=== PATIENT | male | born 1975 | race Caucasian/White ===

== ENCOUNTER → 2024-10-01 15:01 | Outpatient (CLI) | payer OTHER, SELFPAY ==
--- NOTE | 2024-10-01 15:06 | DI.RAD.S_ITS ---
PROCEDURE: XR LUMBAR SPINE MIN 4V INDICATIONS: BACK PAIN TECHNIQUE: 5 views of the lumbar spine acquired, including flexion and extension views. COMPARISON: None. FINDINGS: Bones: 5 nonrib-bearing vertebrae are present. There is normal bony alignment. No vertebral body compression fractures. No suspicious bony lesions. Mild disc height loss at L4-5 and L5-S1. Mild facet arthrosis of L4-5 and L5-S1. Soft tissues: Overlying bowel gas pattern is normal. No suspicious soft tissue calcifications. Flexion/extension: There is normal range of motion, with preserved normal alignment. IMPRESSION: No acute bony abnormality. Mild, lower lumbar degenerative disc disease and lower lumbar facet arthrosis. Dictated by: Rohit Zhu M.D. on 10/01/2024 at 15:47 Approved by: Rohit Zhu M.D. on 10/01/2024 at 15:47
== END ==
PROVIDERS: Referring Provider Physical Medicine & Rehabilitation; Visit Provider Physical Medicine & Rehabilitation
DX: M51.369 Other intervertebral disc degeneration, lumbar region without mention of lumbar back pain or lower extremity pain (principal); M51.379 Other intervertebral disc degeneration, lumbosacral region without mention of lumbar back pain or lower extremity pain; M47.816 Spondylosis without myelopathy or radiculopathy, lumbar region; M47.817 Spondylosis without myelopathy or radiculopathy, lumbosacral region; M54.9 Dorsalgia, unspecified
CPT/HCPCS: 72110

== ENCOUNTER 2024-11-01 07:30 | Outpatient (RCR) | payer OTHER, SELFPAY ==
--- NOTE | 2024-10-11 07:13 | PT.OIE ---
Current Diagnoses Carpal tunnel syndrome, right upper limb (10/10/24) Spondylosis without myelopathy or radiculopathy, lumbar region (10/10/24) Cervicalgia (10/10/24) Low back pain, unspecified (10/10/24) Past Medical History (Last Updated 10/02/24 @ 15:20 by Jered Barksdale DO) Carpal tunnel syndrome of right wrist Cervicalgia Low back pain Lumbar spondylosis Visit Care Team Role Provider Type JERILYN Crum Family Provider Non-Staff Primary Care Provider Specialty: Family Practice Address: [address] [place] [address], [address], [place], [address] Email: Jered Barksdale DO Attending Provider Physician Referring Provider Specialty: Interventional Radiology Physiatry Pain Management Address: [address] [place] [address], [address] Phone: Fax: Email: [email or web address] Physical Therapy Initial Evaluation PT-OP-A Visit Information Start: 10/11/24 06:57 Freq: Status: Active Protocol: Document 10/10/24 09:00 KW (Rec: 10/11/24 07:13 KW Laptop) Out-Patient Physical Therapy Visit Information Visit Information Visit Type Initial Evaluation Visit Note patient 30 min late EVAL ONLY Visit Start Time 08:30 Visit Stop Time 09:00 Visit Number 1 Evaluation Information Evaluation Date 10/10/24 PT-OP-B Current Condition Start: 10/11/24 06:57 Freq: Status: Active Protocol: Document 10/10/24 09:00 KW (Rec: 10/11/24 07:13 KW Laptop) Current Condition History of Current Condition Onset Date chronic Current Complaints Low back pain, C-spine pain, Tingling in feet and R hand 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 Uses a C-pap, full face mask. He goes to the gym and walks 60 min on the treadmill daily. PMHX: metabolic syndrome, Obesity, HTN, sleep apnea, L elbow tendon surgery. He describes a less than [place] ergonomic work station, avoids sit-stand option, needs a new chair, R mouse hand overs above desk, feet are tucked underneath his chair Treatment Goals Patient/Caregiver reduce tingling and pain Goals PT-OP-C Subjective Start: 10/11/24 06:57 Freq: Status: Active Protocol: Document 10/10/24 09:00 KW (Rec: 10/11/24 07:13 KW Laptop) Patient Questionnaires Oswestry Low Back Index Oswestry Score 22 Oswestry Impairment 20 to 39% Impaired (Score 20-39) OP-PT Pain Assessment Location left upper trap Pain Intensity 5 Scale Used Numeric (0 - 10) Description Aching,Burning,Cramping,Dull,Pinching,Pulling Frequency Frequent Pain Alleviating Cold,Heat,Medication,Inactivity Factors Pain Aggravating Position,Changing Position,ADL's,Activity,Exercise Factors low back Pain Location lumbar spine Details Pain Intensity 7 Scale Used Numeric (0 - 10) Description Aching,Burning,Cramping,Pinching,Pulling,Sharp,Spasm Frequency Frequent Pain Alleviating Cold,Heat,Medication,Inactivity,Lying Supine,Position Factors PT-OP-E Functional Tests Start: 10/11/24 06:57 Freq: Status: Active Protocol: Document 10/10/24 09:00 KW (Rec: 10/11/24 07:13 KW Laptop) Functional Tests Single Leg Squat Test Score 0 PT-OP-F Manual Assessment Start: 10/11/24 06:57 Freq: Status: Active Protocol: Document 10/10/24 09:00 KW (Rec: 10/11/24 07:13 KW Laptop) Manual Assessments Soft Tissue Assessment Soft Tissue Mobility stiffness of tissues throughout, lumbar para spinals, Assessment upper traps, suboccipitals Joint Mobility Assessment Joint Mobility B hips WNL ROM, hamstring length WNL Assessment PT-OP-J Posture/Palpation/Skin Start: 10/11/24 06:57 Freq: Status: Active Protocol: Document 10/10/24 09:00 KW (Rec: 10/11/24 07:13 KW Laptop) Posture Evaluation Position Standing Evaluation View Lateral Head/C-Spine Posture C-Spine Flattened,Forward Head T-Spine Posture Increased Kyphosis L-Spine Posture Rotation Left Shoulder Posture (L) Rounded,(R) Rounded Scapula Posture (L) Protracted,(R) Protracted Arm Posture (L) Internally Rotated,(R) Internally Rotated Weight Distribution Weight Shifted Right Hip Posture (L) Internally Rotated,(R) Externally Rotated Comments Posture Comments wide GUILHERME, toe out posture Palpation Assessment Location upper traps Palpation Location B upper traps Palpation Findings Soft Tissue Tightness,Muscle Guarding PT-OP-K Range of Motion Start: 10/11/24 06:57 Freq: Status: Active Protocol: Document 10/10/24 09:00 KW (Rec: 10/11/24 07:13 KW Laptop) Cervical Spine Range of Motion Cervical Spine Active Testing Position Sitting Flexion 25 Extension 10 Rotation Left 20 Rotation Right 22 Lateral Flexion Left 15 Lateral Flexion 14 Right ROM Limitations Soft Tissue Tightness Lumbar Spine Range of Motion Lumbar Spine Active Testing Position Standing Flexion 70 Extension 20 Rotation Left 15 Rotation Right 20 Lateral Flexion Left 15 Lateral Flexion 14 Right ROM Limitations Soft Tissue Tightness PT-OP-L Special Tests Start: 10/11/24 06:57 Freq: Status: Active Protocol: Document 10/10/24 09:00 KW (Rec: 10/11/24 07:13 KW Laptop) Special Tests Cervical Spine Special Tests Slump Test Results neg Lumbar Spine Special Tests Compression Test Results neg PT-OP-M Strength Start: 10/11/24 06:57 Freq: Status: Active Protocol: Document 10/10/24 09:00 KW (Rec: 10/11/24 07:13 KW Laptop) Trunk Strength Trunk Manual Muscle Testing Flexion 4- Good- Core Stabilization poor 3/5 Comments poor IO/TA activation, abdomen full of air, distended, poor full expiratory capacity Scapula Strength Scapula Manual Muscle Testing Right Elevation (C4) 4- Good- Adduction 4- Good- Abduction 4- Good- Depression 4- Good- Comments Bilateral Hip Strength Hip Manual Muscle Testing Right Flexion (L2) 4- Good- Abduction 4- Good- Comments bilateral PT-OP-T Assessment and Plan Start: 10/11/24 06:57 Freq: Status: Active Protocol: Document 10/10/24 09:00 KW (Rec: 10/11/24 07:13 KW Laptop) Physical Therapy Assessment Rehab Potential Rehabilitation Fair Potential Evaluation Complexity Number of Personal 3 or More Factors/ Comorbidities Number of Body 4 or More Systems Impaired Clinical Evolving Presentation at Evaluation Impairments Impairments Activity Tolerance,Balance,Functional Activities, Functional Mobility,Gait,Pain,Posture,ROM,Sensation, Strength Goals Three Impairment patient has pain Short Term Goal (STG pain improves 50% C spine L spine with HEP and ergo ) changes STG Duration 6 weeks Two Impairment poor ergonomics at work Short Term Goal (STG patient improves work station: sit-stand option, chair ) with lumbar support, UE supported on desk or chair rest takes breaks every 30 min STG Duration 6 weeks One Impairment lack of HEP Short Term Goal (STG patient demonstrates independence and compliance with ) basic HEP of hip strengthening exercises STG Duration 6 weeks Assessment Summary Assessment patient presents with LBP C spine pain. He presents with a sedentary life (outside of treadmill walking) and poor work ergonomics. Patient will benefit from skilled PT to address deficits and progress to meet goals. Barriers to Rx: co-morbidities. patient would benefit from a CGM to better manage blood sugars which may be affecting his tingling R hand B feet. Physical Therapy Plan Frequency and Duration Frequency of 2x/Week Treatment Duration of 6 treatment (weeks) Plan of Care Start 10/10/24 Date Plan of Care End 01/10/25 Date Therapeutic Interventions Therapeutic Balance Training,Gait Training,Home Exercise Program, Interventions Joint Mobilizations,Manual Therapy,Neuromuscular Re- education,Orthotic/Prosthetic Management,Patient/ Caregiver Education,Self-Care/Home Management,Soft Tissue Mobilization,Taping,Therapeutic Activities, Therapeutic Exercises Modalities Cold Pack/Ice Massage,Electric Stimulation,Hot Packs, Ultrasound Next Visit Focus/Plan Next Note Type Treatment Note Next Visit Plan warm up shuttle HEP: needs handouts for hip abd, CORE stabilization breath work training
--- NOTE | 2024-10-11 07:13 | PT.OPPOC ---
Physical, Occupational & Speech Therapy At Current Diagnoses Carpal tunnel syndrome, right upper limb (10/10/24) Spondylosis without myelopathy or radiculopathy, lumbar region (10/10/24) Cervicalgia (10/10/24) Low back pain, unspecified (10/10/24) Visit Care Team Role Provider Type JERILYN Crum Family Provider Non-Staff Primary Care Provider Specialty: Family Practice Address: [address] [place] [address], [address], [place], [address] Email: Jered Barksdale DO Attending Provider Physician Referring Provider Specialty: Interventional Radiology Physiatry Pain Management Address: [address] [place] [address], [address] Phone: Fax: Email: [email or web address] Plan Of Care PT-OP-B Current Condition Start: 10/11/24 06:57 Freq: Status: Active Protocol: Document 10/10/24 09:00 KW (Rec: 10/11/24 07:13 KW Laptop) Current Condition History of Current Condition Onset Date chronic Current Complaints Low back pain, C-spine pain, Tingling in feet and R hand 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 Uses a C-pap, full face mask. He goes to the gym and walks 60 min on the treadmill daily. PMHX: metabolic syndrome, Obesity, HTN, sleep apnea, L elbow tendon surgery. He describes a less than [place] ergonomic work station, avoids sit-stand option, needs a new chair, R mouse hand overs above desk, feet are tucked underneath his chair Treatment Goals Patient/Caregiver reduce tingling and pain Goals PT-OP-T Assessment and Plan Start: 10/11/24 06:57 Freq: Status: Active Protocol: Document 10/10/24 09:00 KW (Rec: 10/11/24 07:13 KW Laptop) Physical Therapy Assessment Rehab Potential Rehabilitation Fair Potential Evaluation Complexity Number of Personal 3 or More Factors/ Comorbidities Number of Body 4 or More Systems Impaired Clinical Evolving Presentation at Evaluation Impairments Impairments Activity Tolerance,Balance,Functional Activities, Functional Mobility,Gait,Pain,Posture,ROM,Sensation, Strength Goals Three Impairment patient has pain Short Term Goal (STG pain improves 50% C spine L spine with HEP and ergo ) changes STG Duration 6 weeks Two Impairment poor ergonomics at work Short Term Goal (STG patient improves work station: sit-stand option, chair ) with lumbar support, UE supported on desk or chair rest takes breaks every 30 min STG Duration 6 weeks One Impairment lack of HEP Short Term Goal (STG patient demonstrates independence and compliance with ) basic HEP of hip strengthening exercises STG Duration 6 weeks Assessment Summary Assessment patient presents with LBP C spine pain. He presents with a sedentary life (outside of treadmill walking) and poor work ergonomics. Patient will benefit from skilled PT to address deficits and progress to meet goals. Barriers to Rx: co-morbidities. patient would benefit from a CGM to better manage blood sugars which may be affecting his tingling R hand B feet. Physical Therapy Plan Frequency and Duration Frequency of 2x/Week Treatment Duration of 6 treatment (weeks) Plan of Care Start 10/10/24 Date Plan of Care End 01/10/25 Date Therapeutic Interventions Therapeutic Balance Training,Gait Training,Home Exercise Program, Interventions Joint Mobilizations,Manual Therapy,Neuromuscular Re- education,Orthotic/Prosthetic Management,Patient/ Caregiver Education,Self-Care/Home Management,Soft Tissue Mobilization,Taping,Therapeutic Activities, Therapeutic Exercises Modalities Cold Pack/Ice Massage,Electric Stimulation,Hot Packs, Ultrasound Next Visit Focus/Plan Next Note Type Treatment Note Next Visit Plan warm up shuttle HEP: needs handouts for hip abd, CORE stabilization breath work training Plan of Care Dates Plan of Care Start Date 10/10/24 Plan of Care End Date 01/10/25 Electronically Signed by: Octavia Mendez PT 10/11/24 0713 If you are in agreement with this Plan of Care, please return a signed and dated copy. I have reviewed this Plan of Care and certify that the skilled therapy services above are required to meet the patient?s needs. Physician Signature Date Printed Name and Credentials Clinical Instructor Signature Printed Name and Credentials
--- NOTE | 2024-10-17 07:56 | PT.OTN ---
Current Diagnoses Carpal tunnel syndrome, right upper limb (10/17/24) Spondylosis without myelopathy or radiculopathy, lumbar region (10/17/24) Cervicalgia (10/17/24) Low back pain, unspecified (10/17/24) Physical Therapy Treatment Note PT-OP-A Visit Information Start: 10/11/24 06:57 Freq: Status: Active Protocol: Document 10/17/24 07:40 KW (Rec: 10/17/24 07:56 KW Laptop) Out-Patient Physical Therapy Visit Information Visit Information Visit Type Treatment Note Visit Start Time 07:30 Visit Stop Time 08:10 Visit Number 2 Evaluation Information Evaluation Date 10/10/24 PT-OP-B Current Condition Start: 10/11/24 06:57 Freq: Status: Active Protocol: Document 10/10/24 09:00 KW (Rec: 10/11/24 07:13 KW Laptop) Current Condition History of Current Condition Onset Date chronic Current Complaints Low back pain, C-spine pain, Tingling in feet and R hand 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 Uses a C-pap, full face mask. He goes to the gym and walks 60 min on the treadmill daily. PMHX: metabolic syndrome, Obesity, HTN, sleep apnea, L elbow tendon surgery. He describes a less than [place] ergonomic work station, avoids sit-stand option, needs a new chair, R mouse hand overs above desk, feet are tucked underneath his chair Treatment Goals Patient/Caregiver reduce tingling and pain Goals PT-OP-C Subjective Start: 10/11/24 06:57 Freq: Status: Active Protocol: Document 10/17/24 07:40 KW (Rec: 10/17/24 07:56 KW Laptop) OP-PT Subjective Patient Comments Patient Comments golfed and strained R low back Patient Questionnaires Oswestry Low Back Index Oswestry Score 22 Oswestry Impairment 20 to 39% Impaired (Score 20-39) OP-PT Pain Assessment Location left upper trap Pain Intensity 7 Scale Used Numeric (0 - 10) Description Aching,Burning,Cramping,Dull,Pinching,Pulling Frequency Frequent Pain Alleviating Cold,Heat,Medication,Inactivity Factors Pain Aggravating Position,Changing Position,ADL's,Activity,Exercise Factors low back Pain Location lumbar spine Details Pain Intensity 7 Scale Used Numeric (0 - 10) Description Aching,Burning,Cramping,Pinching,Pulling,Sharp,Spasm Frequency Frequent Pain Alleviating Cold,Heat,Medication,Inactivity,Lying Supine,Position Factors PT-OP-E Functional Tests Start: 10/11/24 06:57 Freq: Status: Active Protocol: Document 10/10/24 09:00 KW (Rec: 10/11/24 07:13 KW Laptop) Functional Tests Single Leg Squat Test Score 0 PT-OP-F Manual Assessment Start: 10/11/24 06:57 Freq: Status: Active Protocol: Document 10/10/24 09:00 KW (Rec: 10/11/24 07:13 KW Laptop) Manual Assessments Soft Tissue Assessment Soft Tissue Mobility stiffness of tissues throughout, lumbar para spinals, Assessment upper traps, suboccipitals Joint Mobility Assessment Joint Mobility B hips WNL ROM, hamstring length WNL Assessment PT-OP-J Posture/Palpation/Skin Start: 10/11/24 06:57 Freq: Status: Active Protocol: Document 10/10/24 09:00 KW (Rec: 10/11/24 07:13 KW Laptop) Posture Evaluation Position Standing Evaluation View Lateral Head/C-Spine Posture C-Spine Flattened,Forward Head T-Spine Posture Increased Kyphosis L-Spine Posture Rotation Left Shoulder Posture (L) Rounded,(R) Rounded Scapula Posture (L) Protracted,(R) Protracted Arm Posture (L) Internally Rotated,(R) Internally Rotated Weight Distribution Weight Shifted Right Hip Posture (L) Internally Rotated,(R) Externally Rotated Comments Posture Comments wide GUILHERME, toe out posture Palpation Assessment Location upper traps Palpation Location B upper traps Palpation Findings Soft Tissue Tightness,Muscle Guarding PT-OP-K Range of Motion Start: 10/11/24 06:57 Freq: Status: Active Protocol: Document 10/10/24 09:00 KW (Rec: 10/11/24 07:13 KW Laptop) Cervical Spine Range of Motion Cervical Spine Active Testing Position Sitting Flexion 25 Extension 10 Rotation Left 20 Rotation Right 22 Lateral Flexion Left 15 Lateral Flexion 14 Right ROM Limitations Soft Tissue Tightness Lumbar Spine Range of Motion Lumbar Spine Active Testing Position Standing Flexion 70 Extension 20 Rotation Left 15 Rotation Right 20 Lateral Flexion Left 15 Lateral Flexion 14 Right ROM Limitations Soft Tissue Tightness PT-OP-L Special Tests Start: 10/11/24 06:57 Freq: Status: Active Protocol: Document 10/10/24 09:00 KW (Rec: 10/11/24 07:13 KW Laptop) Special Tests Cervical Spine Special Tests Slump Test Results neg Lumbar Spine Special Tests Compression Test Results neg PT-OP-M Strength Start: 10/11/24 06:57 Freq: Status: Active Protocol: Document 10/10/24 09:00 KW (Rec: 10/11/24 07:13 KW Laptop) Trunk Strength Trunk Manual Muscle Testing Flexion 4- Good- Core Stabilization poor 3/5 Comments poor IO/TA activation, abdomen full of air, distended, poor full expiratory capacity Scapula Strength Scapula Manual Muscle Testing Right Elevation (C4) 4- Good- Adduction 4- Good- Abduction 4- Good- Depression 4- Good- Comments Bilateral Hip Strength Hip Manual Muscle Testing Right Flexion (L2) 4- Good- Abduction 4- Good- Comments bilateral PT-OP-Q Treatments Start: 10/17/24 07:40 Freq: Status: Active Protocol: Document 10/17/24 07:40 KW (Rec: 10/17/24 07:56 KW Laptop) Therapeutic Exercises Supine Exercises supine ball series Supine Exercise Name supine LTR with ball, supine hamstring curls with ball Comments cues to move with breath supine hip stretching Supine Exercise Name hamstring stretch, LTR, hip ALYSSIA stretch Therapeutic Activity Therapeutic Activity golf stretches Comments ed Regarding golf warm up, stretching, counter rotation Manual Therapy Treatment Joint Mobilizations spine Comments Prone PA T, spine, sacral distraction, prone manual quad stretch prone manual assist Hip IR/ER PT-OP-T Assessment and Plan Start: 10/11/24 06:57 Freq: Status: Active Protocol: Document 10/17/24 07:40 KW (Rec: 10/17/24 07:56 KW Laptop) Physical Therapy Assessment Rehab Potential Rehabilitation Fair Potential Evaluation Complexity Number of Personal 3 or More Factors/ Comorbidities Number of Body 4 or More Systems Impaired Clinical Evolving Presentation at Evaluation Impairments Impairments Activity Tolerance,Balance,Functional Activities, Functional Mobility,Gait,Pain,Posture,ROM,Sensation, Strength Goals Three Impairment patient has pain Short Term Goal (STG pain improves 50% C spine L spine with HEP and ergo ) changes STG Duration 6 weeks Two Impairment poor ergonomics at work Short Term Goal (STG patient improves work station: sit-stand option, chair ) with lumbar support, UE supported on desk or chair rest takes breaks every 30 min STG Duration 6 weeks One Impairment lack of HEP Short Term Goal (STG patient demonstrates independence and compliance with ) basic HEP of hip strengthening exercises STG Duration 6 weeks Assessment Summary Assessment strongly recommend golf warm up, stretching throughout game get back to massage Physical Therapy Plan Frequency and Duration Frequency of 2x/Week Treatment Duration of 6 treatment (weeks) Plan of Care Start 10/10/24 Date Plan of Care End 01/10/25 Date Therapeutic Interventions Therapeutic Balance Training,Gait Training,Home Exercise Program, Interventions Joint Mobilizations,Manual Therapy,Neuromuscular Re- education,Orthotic/Prosthetic Management,Patient/ Caregiver Education,Self-Care/Home Management,Soft Tissue Mobilization,Taping,Therapeutic Activities, Therapeutic Exercises Modalities Cold Pack/Ice Massage,Electric Stimulation,Hot Packs, Ultrasound Next Visit Focus/Plan Next Note Type Treatment Note Next Visit Plan warm up shuttle HEP: needs handouts for hip abd, CORE stabilization breath work training foam roller
--- NOTE | 2024-10-25 07:42 | PT.OTN ---
Current Diagnoses Carpal tunnel syndrome, right upper limb (10/25/24) Spondylosis without myelopathy or radiculopathy, lumbar region (10/25/24) Cervicalgia (10/25/24) Low back pain, unspecified (10/25/24) Physical Therapy Treatment Note PT OP: Lower Back/Lower Extremity Start: 10/25/24 07:35 Freq: Status: Active Protocol: Document 10/25/24 07:35 KW (Rec: 10/25/24 07:42 KW Laptop) Out-Patient Physical Therapy Visit Information Visit Information Visit Type Treatment Note Visit Start Time 07:30 Visit Stop Time 08:10 Visit Number 3 OP-PT Subjective Patient Comments Patient Comments feeling better. 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 Cardio Equipment Recumbent Elliptical (NuStep) Duration (Minutes) 10 Gym Equipment Shuttle Rebound squats Exercise Details B 75, single 50# Therapeutic Exercises Supine Exercises supine ball series Supine Exercise Name supine LTR with ball, supine hamstring curls with ball Comments cues to move with breath supine hip stretching Supine Exercise Name hamstring stretch, LTR, hip ALYSSIA stretch Therapeutic Activity Therapeutic Activity golf stretches Comments ed Regarding golf warm up, stretching, counter rotation Manual Therapy Treatment Joint Mobilizations spine Comments Prone PA T, spine, sacral distraction, prone manual quad stretch prone manual assist Hip IR/ER Self-Care/Home Management Treatment Education Patient Education Body Mechanics,Fall Risk,Home Exercise Program,Joint Protection,Pain Management,Posture Physical Therapy Assessment Rehab Potential Rehabilitation Fair Potential Evaluation Complexity Number of Personal 3 or More Factors/ Comorbidities Number of Body 4 or More Systems Impaired Clinical Evolving Presentation at Evaluation Impairments Impairments Activity Tolerance,Balance,Functional Activities, Functional Mobility,Gait,Pain,Posture,ROM,Sensation, Strength Goals Three Impairment patient has pain Short Term Goal (STG pain improves 50% C spine L spine with HEP and ergo ) changes STG Duration 6 weeks Two Impairment poor ergonomics at work Short Term Goal (STG patient improves work station: sit-stand option, chair ) with lumbar support, UE supported on desk or chair rest takes breaks every 30 min STG Duration 6 weeks One Impairment lack of HEP Short Term Goal (STG patient demonstrates independence and compliance with ) basic HEP of hip strengthening exercises STG Duration 6 weeks Assessment Summary Assessment strongly recommend golf warm up, stretching throughout game get back to massage Physical Therapy Plan Frequency and Duration Frequency of 2x/Week Treatment Duration of 6 treatment (weeks) Plan of Care Start 10/10/24 Date Plan of Care End 01/10/25 Date Therapeutic Interventions Therapeutic Balance Training,Gait Training,Home Exercise Program, Interventions Joint Mobilizations,Manual Therapy,Neuromuscular Re- education,Orthotic/Prosthetic Management,Patient/ Caregiver Education,Self-Care/Home Management,Soft Tissue Mobilization,Taping,Therapeutic Activities, Therapeutic Exercises Modalities Cold Pack/Ice Massage,Electric Stimulation,Hot Packs, Ultrasound Next Visit Focus/Plan Next Note Type Treatment Note Next Visit Plan warm up shuttle HEP: needs handouts for hip abd, CORE stabilization breath work training foam roller
--- NOTE | 2024-11-01 07:40 | PT.OTN ---
Current Diagnoses Carpal tunnel syndrome, right upper limb (11/01/24) Spondylosis without myelopathy or radiculopathy, lumbar region (11/01/24) Cervicalgia (11/01/24) Low back pain, unspecified (11/01/24) Physical Therapy Treatment Note PT OP: Lower Back/Lower Extremity Start: 10/25/24 07:35 Freq: Status: Active Protocol: Document 11/01/24 07:34 KW (Rec: 11/01/24 07:39 KW Laptop) Out-Patient Physical Therapy Visit Information Visit Information Visit Type Treatment Note Visit Start Time 07:30 Visit Stop Time 08:10 Visit Number 4 OP-PT Subjective Patient Comments Patient Comments didn't sleep well can't lay on shoulders back is better Cardio Equipment Recumbent Elliptical (NuStep) Duration (Minutes) 10 Therapeutic Exercises Prone Exercises prone over ball Prone Exercise Name prone over ball I Y T Reps/Minutes x 10 each Standing Exercises rotator cuff IR/ER Standing Exercise RC IR /ER with towel Name Equipment Used orange band Reps/Minutes 2 x 10 B UE extension bands Standing Exercise B UE rows/pulls Name Reps/Minutes 2 x 10 each foam roller on wall Standing Exercise foam roller on wall serratus low trap Name Comments cues for breathing rib alignment, spine alingment Physical Therapy Assessment Rehab Potential Rehabilitation Fair Potential Goals Three Impairment patient has pain Short Term Goal (STG pain improves 50% C spine L spine with HEP and ergo ) changes STG Duration 6 weeks Two Impairment poor ergonomics at work Short Term Goal (STG patient improves work station: sit-stand option, chair ) with lumbar support, UE supported on desk or chair rest takes breaks every 30 min STG Duration 6 weeks One Impairment lack of HEP Short Term Goal (STG patient demonstrates independence and compliance with ) basic HEP of hip strengthening exercises STG Duration 6 weeks Assessment Summary Assessment shoulder stiffness, likely ac OA, bursitis UE strengthening for RC will be helpful Physical Therapy Plan Frequency and Duration Frequency of 2x/Week Treatment Duration of 6 treatment (weeks) Plan of Care Start 10/10/24 Date Plan of Care End 01/10/25 Date Next Visit Focus/Plan Next Note Type Treatment Note Next Visit Plan warm up shuttle HEP: needs handouts for hip abd, CORE stabilization breath work training foam roller
--- NOTE | 2024-11-28 13:03 | PT.OPDS ---
Current Diagnoses Carpal tunnel syndrome, right upper limb (11/01/24) Spondylosis without myelopathy or radiculopathy, lumbar region (11/01/24) Cervicalgia (11/01/24) Low back pain, unspecified (11/01/24) Visit Care Team Role Provider Type JERILYN Crum Family Provider Non-Staff Primary Care Provider Specialty: Family Practice Address: [address] [place] [address], [address], [place], [address] Email: Jered Barksdale DO Attending Provider Physician Referring Provider Specialty: Interventional Radiology Physiatry Pain Management Address: [address] [place] [address], [id number] Phone: Fax: Email: [email or web address] Visit Number Visit Number 4 Discharge Summary PT OP: Lower Back/Lower Extremity Start: 10/25/24 07:35 Freq: Status: Active Protocol: Document 11/28/24 13:03 KW (Rec: 11/28/24 13:03 KW Laptop) Out-Patient Physical Therapy Visit Information Visit Information Visit Type Discharge Summary Physical Therapy Assessment Goals Three Impairment patient has pain Short Term Goal (STG pain improves 50% C spine L spine with HEP and ergo ) changes STG Duration 6 weeks Two Impairment poor ergonomics at work Short Term Goal (STG patient improves work station: sit-stand option, chair ) with lumbar support, UE supported on desk or chair rest takes breaks every 30 min STG Duration 6 weeks One Impairment lack of HEP Short Term Goal (STG patient demonstrates independence and compliance with ) basic HEP of hip strengthening exercises STG Duration 6 weeks Physical Therapy Plan Discharge Physical Therapy Discharge Reasons No Longer Attending PT
== END 2024-11-29 13:27 | disposition home or self-care (01) ==
LOC: PHYS 07:30
PROVIDERS: Referring Provider Physical Medicine & Rehabilitation; Visit Provider Physical Medicine & Rehabilitation
DX: M54.50 Low back pain, unspecified (principal); M47.816 Spondylosis without myelopathy or radiculopathy, lumbar region; G56.01 Carpal tunnel syndrome, right upper limb; M54.2 Cervicalgia
CPT/HCPCS: 97110; 97140; 97163; 97530

== ENCOUNTER → 2024-12-18 06:54 | Outpatient (CLI) | payer OTHER, SELFPAY ==
--- NOTE | 2024-12-18 06:55 | DI.MRI.S_ITS ---
PROCEDURE: MR LUMBAR SPINE WO CON INDICATIONS: low back pain and bilateral lower limb paresthesia TECHNIQUE: Noncontrast sagittal T1 spin echo and T2 fast echo, sagittal STIR, and T2 fast spin echo through the lumbar spine. In cases with scoliosis, additional coronal T2 fast spin echo may be performed. COMPARISON: [facility], CR, XR LUMBAR SPINE MIN 4V, 10/01/2024, 15:01. FINDINGS: Image quality: Excellent. Alignment and Curvature: There is normal bony alignment. Bone Marrow: Mild Modic type 2 reactive endplate changes adjacent to the L2-L3 and L4-L5 discs. No acute vertebral body compression fractures. Spinal Cord: Conus medullaris terminates at the L1 level. Visualized cord demonstrates normal signal and size. Paraspinous Soft Tissues: No paravertebral masses. T12-L1: Normal appearance. L1-L2: Normal appearance. L2-L3: Loss of disc signal. Mild, diffuse disc bulge. No central stenosis. Minimal bilateral neural foraminal narrowing. No neural compression L3-L4: Loss of disc signal. Mild, diffuse disc bulge. No central stenosis. Minimal bilateral neural foraminal narrowing. No neural compression. L4-L5: Loss of disc signal and slight loss of disc height. Mild, diffuse disc bulge. Right central/right foraminal disc protrusion. No central stenosis. Moderate right and mild left neural foraminal narrowing. No neural compression. Fissures in the posterior annulus. L5-S1: Normal appearance. IMPRESSION: Multilevel degenerative disc disease. No severe central canal stenosis. No severe neural foraminal stenosis. No neural compression. L4-L5 disc annulus fissures. Dictated by: Bee Mason MD, PhD on 12/18/2024 at 10:55 Approved by: Bee Mason MD, PhD on 12/18/2024 at 10:59
== END ==
LOC: MRI 06:54
PROVIDERS: Referring Provider Physical Medicine & Rehabilitation; Visit Provider Physical Medicine & Rehabilitation
DX: M51.16 Intervertebral disc disorders with radiculopathy, lumbar region (principal); M51.A0 Intervertebral annulus fibrosus defect, lumbar region, unspecified size; R20.2 Paresthesia of skin; G89.29 Other chronic pain
CPT/HCPCS: 72148

== ENCOUNTER → 2025-01-31 12:36 | Outpatient (CLI) | payer OTHER, SELFPAY | LOC: PHYS 12:38 | PROVIDERS: Referring Provider Physical Medicine & Rehabilitation; Visit Provider Physical Medicine & Rehabilitation | DX: R20.2 Paresthesia of skin (principal) | CPT/HCPCS: 95886; 95911 ==

== ENCOUNTER → 2025-02-21 10:39 | Outpatient (CLI) | payer OTHER, SELFPAY | LOC: PHYS 10:40 | PROVIDERS: Referring Provider Physical Medicine & Rehabilitation; Visit Provider Physical Medicine & Rehabilitation | DX: R20.2 Paresthesia of skin (principal) | CPT/HCPCS: 95886; 95911 ==